=== PATIENT | female | born 1955 | race Caucasian/White ===

== ENCOUNTER → 2017-03-05 | Outpatient (CLI) | payer MEDICARE, OTHER ==
[~2017-03-05] MED LIST: ALBUPOW26 PO; CARI-277 PO; FEXO-8 PO; FLUT500M6 IN; GABA600T PO; IPR002IS NEB; LEVA3NEB NEB; MONT10TA23 PO; NOR10T PO; OMEP20TA44 PO; ORUDIS PO; SUMA100T2 PO; [UNRECOGNIZED DRUG - CODE] PO; colace PO; prednisone PO; travatan EACHEYE
== END | disposition home or self-care (01) ==
LOC: Rad HDHVI 10:41
PROVIDERS: ATTEND Internal Medicine Cardiovascular Disease
DX: R05 Cough (principal)
CPT/HCPCS: 71046

== ENCOUNTER → 2017-03-23 | Outpatient (CLI) | payer MEDICARE, OTHER ==
[~2017-03-23] MED LIST changes: +ACETYLCYSTEINE 20%(200MG/ML) SOL 4ML NEB ONE; +ACETYLCYSTEINE 20%(200MG/ML) SOL 4ML ONE; +IOHEXOL 350 MG/ML 100ML IJ ONE
[2017-03-23 10:40] VITALS: BP 122/86
[2017-03-23 11:30] VITALS: BP 126/93
== END | disposition home or self-care (01) ==
LOC: Rad HDHVI 10:29
PROVIDERS: ATTEND Internal Medicine Cardiovascular Disease
DX: M47.9 Spondylosis, unspecified (principal); R06.02 Shortness of breath
CPT/HCPCS: 71275; 82565; 94640; 96374; G0463; Q9967

== ENCOUNTER → 2017-10-09 | Outpatient (CLI) | payer MEDICARE, OTHER ==
[~2017-10-09] MED LIST changes: -ACETYLCYSTEINE 20%(200MG/ML) SOL 4ML NEB ONE; -ACETYLCYSTEINE 20%(200MG/ML) SOL 4ML ONE; -IOHEXOL 350 MG/ML 100ML IJ ONE
== END | disposition home or self-care (01) ==
LOC: Rad HDHVI 11:28
PROVIDERS: ATTEND Internal Medicine Cardiovascular Disease
DX: J40 Bronchitis, not specified as acute or chronic (principal)
CPT/HCPCS: 71046

== ENCOUNTER → 2017-10-14 | Outpatient (CLI) | payer MEDICARE, OTHER | END | disposition home or self-care (01) | LOC: Rad HDHVI 11:42 | PROVIDERS: ATTEND Internal Medicine Cardiovascular Disease | DX: M60.09 Infective myositis, multiple sites (principal); E78.5 Hyperlipidemia, unspecified | CPT/HCPCS: 93926 ==

== ENCOUNTER → 2018-01-05 | Outpatient (CLI) | payer MEDICARE, OTHER | END | disposition home or self-care (01) | LOC: LAB 08:09 | PROVIDERS: ATTEND Internal Medicine Cardiovascular Disease | DX: C84.45 Peripheral T-cell lymphoma, not elsewhere classified, lymph nodes of inguinal region and lower limb (principal); R70.0 Elevated erythrocyte sedimentation rate; M32.10 Systemic lupus erythematosus, organ or system involvement unspecified; R79.82 Elevated C-reactive protein (CRP); E78.5 Hyperlipidemia, unspecified | CPT/HCPCS: 36415; 85652; 86141; 86225; 86235 ==

== ENCOUNTER → 2018-06-02 | Outpatient (CLI) | payer MEDICARE, OTHER ==
[2018-06-02 12:22] LABS: Basophils # (auto) 0 uL; Basophils % (auto) 0.7 % (0.0-2.0); Eosinophils # (auto) 0.2 uL; Eosinophils % (auto) 4.1 % (0.0-7.0); Hematocrit 42.5 % (36.0-46.0); Lymphocytes # (auto) 0.8 uL; Mean Corpuscular Hemoglobin 30.6 pg (28.0-32.0); Mean Corpuscular Volume 92.7 fL (80.0-100.0); Monocytes # (auto) 0.4 uL; Monocytes % (auto) 6.5 % (0.0-12.0); Neutrophils # (auto) 4.1 uL; Neutrophils % (auto) 74.7 % (37.0-80.0); Nucleated Red Blood Cells % 0.2 %; Platelet Count (auto) 130 10^3/uL (140-450); Red Blood Cells 4.59 10^6/uL (4.0-5.20); Red Cell Distribution Width 13.2 % (11.8-14.3); White Blood Cell 5.5 10^3/uL (4.4-10.8)
[2018-06-02 12:26] LABS: Urine Blood Negative /uL (Negative); Urine Specific Gravity 1.007 (1.001-1.035)
[2018-06-02 12:45] LABS: Potassium 4.3 mmol/L (3.5-5.1)
[2018-06-02 12:55] LABS: Albumin 3.9 g/dL (3.4-5.0); BUN/Creatinine Ratio 14.3; Bilirubin, Total 0.6 mg/dL (0.2-1.0); Calcium 9.4 mg/dL (8.5-10.1); Total Protein 6.9 g/dL (6.4-8.2)
[2018-06-02 12:58] LABS: Free T4 (Free Thyroxine) 0.94 ng/dL (0.89-1.76)
== END | disposition home or self-care (01) ==
LOC: LAB 08:58
PROVIDERS: ATTEND Internal Medicine Cardiovascular Disease
DX: E55.9 Vitamin D deficiency, unspecified (principal); M06.9 Rheumatoid arthritis, unspecified; E03.9 Hypothyroidism, unspecified; E11.9 Type 2 diabetes mellitus without complications; D51.9 Vitamin B12 deficiency anemia, unspecified; N39.0 Urinary tract infection, site not specified; Z79.899 Other long term (current) drug therapy
CPT/HCPCS: 36415; 80053; 80061; 80158; 81003; 82306; 82607; 83036; 84439; 84443; 85025; 87086

== ENCOUNTER → 2018-07-07 | Outpatient (CLI) | payer MEDICARE, OTHER | END | disposition home or self-care (01) | LOC: Rad HDHVI 14:33 | PROVIDERS: ATTEND Internal Medicine Cardiovascular Disease | DX: R06.02 Shortness of breath (principal); R00.2 Palpitations; M85.88 Other specified disorders of bone density and structure, other site | CPT/HCPCS: 71046; 93306 ==

== ENCOUNTER → 2018-07-27 | Outpatient (CLI) | payer MEDICARE, OTHER ==
[~2018-07-27] VITALS: Ht 170.2 cm; Wt 68.0 kg
[~2018-07-27] MED LIST changes: +ADENOSINE 57 MG in GIVE UN-DILUTED 0 ML IV ONE; +ADENOSINE 90 MG/30 ML INJ IV ONE
[2018-07-27 12:04] LABS: Urine Blood Negative /uL (Negative); Urine Specific Gravity 1.006 (1.001-1.035)
[2018-07-27 12:09] LABS: Basophils # (auto) 0 uL; Basophils % (auto) 0.9 % (0.0-2.0); Eosinophils # (auto) 0.2 uL; Eosinophils % (auto) 4.3 % (0.0-7.0); Hematocrit 42.1 % (36.0-46.0); Hemoglobin 14.1 g/dL (12.2-16.2); Lymphocytes # (auto) 0.8 uL; Lymphocytes % (auto) 13.8 % (10.0-50.0); Mean Corpuscular Hemoglobin 31.1 pg (28.0-32.0); Mean Corpuscular Hgb Conc. 33.6 g/dL (32.0-36.0); Mean Corpuscular Volume 92.6 fL (80.0-100.0); Monocytes # (auto) 0.4 uL; Monocytes % (auto) 7.6 % (0.0-12.0); Neutrophils # (auto) 4.1 uL; Neutrophils % (auto) 73.4 % (37.0-80.0); Nucleated Red Blood Cells % 0.1 %; Platelet Count (auto) 131 10^3/uL (140-450); Red Blood Cells 4.54 10^6/uL (4.0-5.20); Red Cell Distribution Width 13.3 % (11.8-14.3); White Blood Cell 5.6 10^3/uL (4.4-10.8)
[2018-07-27 12:34] LABS: Potassium 3.8 mmol/L (3.5-5.1)
[2018-07-27 12:46] LABS: Albumin 3.6 g/dL (3.4-5.0); BUN/Creatinine Ratio 16.7; Bilirubin, Total 0.5 mg/dL (0.2-1.0); Calcium 9.3 mg/dL (8.5-10.1); Total Protein 6.9 g/dL (6.4-8.2)
[2018-07-27 13:09] LABS: Free T4 (Free Thyroxine) 0.84 ng/dL (0.89-1.76)
== END | disposition home or self-care (01) ==
LOC: Rad HDHVI 08:03
PROVIDERS: ATTEND Internal Medicine Cardiovascular Disease
DX: Z13.89 Encounter for screening for other disorder (principal); E03.9 Hypothyroidism, unspecified; E55.9 Vitamin D deficiency, unspecified; D51.9 Vitamin B12 deficiency anemia, unspecified; N39.0 Urinary tract infection, site not specified; J44.9 Chronic obstructive pulmonary disease, unspecified; E78.5 Hyperlipidemia, unspecified; I47.9 Paroxysmal tachycardia, unspecified; R42 Dizziness and giddiness; I11.0 Hypertensive heart disease with heart failure; I50.9 Heart failure, unspecified; Z79.899 Other long term (current) drug therapy
CPT/HCPCS: 36415; 78452; 80053; 80061; 81003; 82306; 82607; 83036; 84439; 84443; 85025; 93005; 96374; 96375; A9500; J0153

== ENCOUNTER → 2019-05-26 | Outpatient (CLI) | payer MEDICARE, OTHER ==
[~2019-05-26] MED LIST changes: -ADENOSINE 57 MG in GIVE UN-DILUTED 0 ML IV ONE; -ADENOSINE 90 MG/30 ML INJ IV ONE; +MEROPENEM 1GM IVPB 100 ML IV SCH
[2019-05-26 13:52] VITALS: BP 145/93
--- NOTE | 2019-05-26 13:52 | NUR ---
[facility] PT ARRIVED AT [facility] FOR ORDERED ABX THERAPY. VSS A/O X 4 0 DISTRESS
--- NOTE | 2019-05-26 14:44 | NUR ---
IV insertion IV access obtained, via clean sterile technique by inserting 22 gauge catheter at RA after attempt(s). IV secured properly. No trauma to site. Patient tolerated procedure well.
[2019-05-26 15:30] VITALS: BP 160/80
--- NOTE | 2019-05-26 15:30 | NUR ---
Discharge Instructions See e-MAR for any mediations given with this visit. Patient education given on disease process. Patient verbalized understanding. Previous labs reviewed. Patient discharged in stable condition with after care instructions and follow up appointment. MEDICATIONS MEROPENEM IV [id number] PT TO RETURN TO CLINIC IN AM FOR FASTING LABS AND IV ABX. IV TO RAC SECURED IN PLACE . [employer] PICKED UP ORDERS FOR HOME HEALTH TO INFUSE ABX OVER THE WEEKEND
== END | disposition home or self-care (01) ==
LOC: CHF HDHVI 13:48
PROVIDERS: ATTEND Internal Medicine Cardiovascular Disease
DX: J06.9 Acute upper respiratory infection, unspecified (principal); E03.9 Hypothyroidism, unspecified; Z79.899 Other long term (current) drug therapy
CPT/HCPCS: 96365; G0463; J1642; J2185

== ENCOUNTER → 2019-05-27 | Outpatient (CLI) | payer MEDICARE, OTHER ==
[~2019-05-27] MED LIST changes: +MEROPENEM 1GM IVPB 100 ML IV ONE; -MEROPENEM 1GM IVPB 100 ML IV SCH; +MEROPENEM 1GM IVPB 50 ML IV ONE
[2019-05-27 08:10] VITALS: BP 128/91
[2019-05-27 10:35] VITALS: BP 140/87
[2019-05-27 11:46] LABS: Urine Blood Negative /uL (Negative); Urine Specific Gravity 1.013 (1.001-1.035)
[2019-05-27 11:48] LABS: Basophils # (auto) 0.1 10 ^3/uL (0-0.2); Basophils % (auto) 1.1 % (0.0-2.0); Eosinophils # (auto) 0.2 10 ^3/uL (0-0.8); Eosinophils % (auto) 5.3 % (0.0-7.0); Hematocrit 41.3 % (36.0-46.0); Hemoglobin 13.7 g/dL (12.2-16.2); Lymphocytes # (auto) 0.8 10 ^3/uL (0.4-5.4); Lymphocytes % (auto) 17.6 % (10.0-50.0); Mean Corpuscular Hemoglobin 30.5 pg (28.0-32.0); Mean Corpuscular Volume 92.4 fL (80.0-100.0); Monocytes # (auto) 0.4 10 ^3/uL (0-1.3); Monocytes % (auto) 8.5 % (0.0-12.0); Neutrophils % (auto) 67.5 % (37.0-80.0); Platelet Count (auto) 124 10^3/uL (140-450); Red Blood Cells 4.47 10^6/uL (4.0-5.20); Red Cell Distribution Width 13.4 % (11.8-14.3); White Blood Cell 4.5 10^3/uL (4.4-10.8)
[2019-05-27 11:56] LABS: Albumin 3.4 g/dL (3.4-5.0); Calcium 8.6 mg/dL (8.5-10.1); Magnesium 2.5 mg/dL (1.6-2.6); Potassium 3.8 mmol/L (3.5-5.1)
[2019-05-27 12:01] LABS: BUN/Creatinine Ratio 14.5; Bilirubin, Direct 0.1 mg/dL (0-0.2); Bilirubin, Total 0.4 mg/dL (0.2-1.0); Total Protein 6.6 g/dL (6.4-8.2)
== END | disposition home or self-care (01) ==
LOC: CHF HDHVI 08:02
PROVIDERS: ATTEND Internal Medicine Cardiovascular Disease
DX: E03.9 Hypothyroidism, unspecified (principal); K90.9 Intestinal malabsorption, unspecified; N39.0 Urinary tract infection, site not specified; D51.9 Vitamin B12 deficiency anemia, unspecified; Z79.899 Other long term (current) drug therapy; Z00.00 Encounter for general adult medical examination without abnormal findings
CPT/HCPCS: 36415; 80048; 80061; 80076; 81003; 82306; 83036; 83735; 84443; 85025; 96365; G0463; J2185

== ENCOUNTER → 2019-05-30 | Outpatient (CLI) | payer MEDICARE, OTHER ==
[~2019-05-30] VITALS: Ht 2.5 cm; Wt 0.0 kg
[2019-05-30 08:00] VITALS: BP 127/94
--- NOTE | 2019-05-30 08:00 | NUR ---
CHF PT ARRIVED TO THE [facility]F CLINIC FOR TX AND SCHEDULED ANTIBIOTIC THERAPY
--- NOTE | 2019-05-30 08:10 | NUR ---
IV PRESENT UPON ARRIVAL. SITE PATENT AND BENIGN WILL REMOVE IV TODAY.
--- NOTE | 2019-05-30 08:36 | NUR ---
MEROPENEM STARTED PER MD ORDERS
[2019-05-30 10:40] VITALS: BP 152/83
--- NOTE | 2019-05-30 10:40 | NUR ---
Discharge Instructions See e-MAR for any mediations given with this visit. Patient education given on disease process. Patient verbalized understanding. Previous labs reviewed. Patient discharged in stable condition with after care instructions and follow up appointment. WILL RETURN TOMORROW FOR NEXT IV ANTIBIOTIC INFUSION PER MD ORDERS NOTE MEROPENEM IV [id number] ADMIN BY KARL
== END | disposition home or self-care (01) ==
LOC: CHF HDHVI 07:56
PROVIDERS: ATTEND Internal Medicine Cardiovascular Disease
DX: J40 Bronchitis, not specified as acute or chronic (principal); E03.9 Hypothyroidism, unspecified; Z79.899 Other long term (current) drug therapy
CPT/HCPCS: 96365; 96366; G0463; J2185

== ENCOUNTER → 2019-05-31 | Outpatient (CLI) | payer MEDICARE, OTHER ==
--- NOTE | 2019-05-31 08:00 | NUR ---
CHF PT ARRIVED TO THE CLINIC FOR ANTIBIOTIC THERAPY 0 DISTRESS VSS.
--- NOTE | 2019-05-31 08:15 | NUR ---
IV insertion IV access obtained, via clean sterile technique by inserting 22 gauge catheter at RFA after 1 attempt(s). IV secured properly. No trauma to site. Patient tolerated procedure well. ADDITIONAL LABS SENT
--- NOTE | 2019-05-31 08:20 | NUR ---
ANTIBIOTICS STARTED PER MD ORDER
[2019-05-31 08:46] VITALS: BP 124/83
[2019-05-31 09:59] VITALS: BP 120/85
--- NOTE | 2019-05-31 09:59 | NUR ---
Discharge Instructions See e-MAR for any mediations given with this visit. Patient education given on disease process. Patient verbalized understanding. Previous labs reviewed. Patient discharged in stable condition with after care instructions and follow up appointment. medications meropenem iv heparin ivp IV LEFT INTACT AND SECURED WITH KEFLEX AND NETTING. PT TO RETURN TO CLINIC TOMORROW FOR LAST ABX
[2019-05-31 12:21] LABS: Free T4 (Free Thyroxine) 0.79 ng/dL (0.89-1.76); T3 Total 1.09 ng/mL (0.60-1.81)
== END | disposition home or self-care (01) ==
LOC: CHF HDHVI 08:08
PROVIDERS: ATTEND Internal Medicine Cardiovascular Disease
DX: E03.9 Hypothyroidism, unspecified (principal)
CPT/HCPCS: 84439; 84480; J1642; J2185

== ENCOUNTER → 2019-06-01 | Outpatient (CLI) | payer MEDICARE, OTHER ==
[~2019-06-01] MED LIST changes: -MEROPENEM 1GM IVPB 50 ML IV ONE
[2019-06-01 07:45] VITALS: BP 119/84
--- NOTE | 2019-06-01 07:45 | NUR ---
CHF PT ARRIVED TO THE CHF CLINIC FOR IV ANTIBIOTIC INFUSION PER MD ORDER. TREATMENT 7 OF 7. IV IN [address] BENIGN AND FLUSHES WELL. VSS. WILL CONTINUE TO MONITOR.
--- NOTE | 2019-06-01 09:19 | NUR ---
IV removal IV DC'd with sterile technique, catheter fully intact. Pressure dressing applied to site. Patient tolerated procedure well. Discharged with aftercare instructions per MD. NOTE: REMOVED BY MAO NGUYỄN
[2019-06-01 09:22] VITALS: BP 140/87
--- NOTE | 2019-06-01 09:22 | NUR ---
Discharge Instructions See e-MAR for any mediations given with this visit. Patient education given on disease process. Patient verbalized understanding. Previous labs reviewed. Patient discharged in stable condition with after care instructions and follow up appointment. NOTE MEROPENEM [id number] ADMIN BY MAO NGUYỄN
== END | disposition home or self-care (01) ==
LOC: CHF HDHVI 08:31
PROVIDERS: ATTEND Internal Medicine Cardiovascular Disease
DX: J40 Bronchitis, not specified as acute or chronic (principal); E03.9 Hypothyroidism, unspecified; Z79.899 Other long term (current) drug therapy
CPT/HCPCS: 96365; G0463; J2185

== ENCOUNTER → 2020-02-21 | Outpatient (CLI) | payer MEDICARE, OTHER ==
[~2020-02-21] MED LIST changes: -MEROPENEM 1GM IVPB 100 ML IV ONE
== END | disposition home or self-care (01) ==
LOC: Rad HDHVI 09:53
PROVIDERS: ATTEND Internal Medicine Cardiovascular Disease
DX: S02.40FA Zygomatic fracture, left side, initial encounter for closed fracture (principal); G93.89 Other specified disorders of brain; J43.9 Emphysema, unspecified; J34.2 Deviated nasal septum; R51.9 Headache, unspecified; X58.XXXA Exposure to other specified factors, initial encounter; Y93.89 Activity, other specified; Y92.89 Other specified places as the place of occurrence of the external cause; Y99.8 Other external cause status; Z91.81 History of falling
CPT/HCPCS: 70450; 70486; 73030; 73110

== ENCOUNTER → 2020-05-23 | Outpatient (CLI) | payer MEDICARE, OTHER ==
[~2020-05-23] VITALS: Ht 170.2 cm; Wt 74.8 kg
[~2020-05-23] MED LIST changes: +ADENOSINE 63 MG in GIVE UN-DILUTED 0 ML IV ONE; +ADENOSINE 90 MG/30 ML INJ IV ONE
== END | disposition home or self-care (01) ==
LOC: Rad HDHVI 08:49
PROVIDERS: ATTEND Internal Medicine Cardiovascular Disease
DX: I10 Essential (primary) hypertension (principal); E78.00 Pure hypercholesterolemia, unspecified; R07.89 Other chest pain; Z82.49 Family history of ischemic heart disease and other diseases of the circulatory system
CPT/HCPCS: 78452; 93005; 96374; 96375; A9500; J0153

== ENCOUNTER → 2020-08-31 | Outpatient (CLI) | payer MEDICARE, OTHER ==
[~2020-08-31] MED LIST changes: -ADENOSINE 63 MG in GIVE UN-DILUTED 0 ML IV ONE; -ADENOSINE 90 MG/30 ML INJ IV ONE
== END | disposition home or self-care (01) ==
LOC: Rad HDHVI 09:53
PROVIDERS: ATTEND Internal Medicine Cardiovascular Disease
DX: I10 Essential (primary) hypertension (principal); E78.5 Hyperlipidemia, unspecified
CPT/HCPCS: 93925

== ENCOUNTER → 2021-02-11 | Outpatient (CLI) | payer MEDICARE, OTHER | END | disposition home or self-care (01) | LOC: Rad HDHVI 10:51 | PROVIDERS: ATTEND Internal Medicine Cardiovascular Disease | DX: R06.02 Shortness of breath (principal) | CPT/HCPCS: 71046 ==

== ENCOUNTER → 2021-03-04 | Outpatient (CLI) | payer MEDICARE, OTHER ==
[~2021-03-04] MED LIST changes: +PIPERACILLIN-TAZO 4.5GM 100 ML IV ONE
[2021-03-04 12:52] VITALS: BP 171/94
[2021-03-04 14:40] VITALS: BP 136/79
[2021-03-04 15:53] VITALS: BP 140/82
== END | disposition home or self-care (01) ==
LOC: Rad HDHVI 12:51
PROVIDERS: ATTEND Internal Medicine Cardiovascular Disease
DX: J40 Bronchitis, not specified as acute or chronic (principal); I70.0 Atherosclerosis of aorta; I10 Essential (primary) hypertension; E78.5 Hyperlipidemia, unspecified; E78.00 Pure hypercholesterolemia, unspecified
CPT/HCPCS: 71046; 96365; 96366; G0463; J1642; J2543; 96375

== ENCOUNTER → 2021-03-05 | Outpatient (CLI) | payer MEDICARE, OTHER ==
[~2021-03-05] MED LIST changes: -PIPERACILLIN-TAZO 4.5GM 100 ML IV ONE; +cefTRIAXone 1GM/50ML D5W 50 ML IV ONE; +cefTRIAXone SOD 1,000 MG VL ONE
[2021-03-05 07:58] VITALS: BP 140/90
[2021-03-05 08:43] VITALS: BP 150/89
== END | disposition home or self-care (01) ==
LOC: CHF HDHVI 07:57
PROVIDERS: ATTEND Internal Medicine Cardiovascular Disease
DX: J40 Bronchitis, not specified as acute or chronic (principal); I10 Essential (primary) hypertension; E78.5 Hyperlipidemia, unspecified; E78.00 Pure hypercholesterolemia, unspecified
CPT/HCPCS: 96365; G0463; J0696; J1642

== ENCOUNTER → 2021-03-06 | Outpatient (CLI) | payer MEDICARE, OTHER ==
[~2021-03-06] VITALS: Ht 30.5 cm; Wt 0.5 kg
[~2021-03-06] MED LIST changes: -cefTRIAXone SOD 1,000 MG VL ONE
[2021-03-06 13:58] VITALS: BP 125/82
[2021-03-06 14:37] VITALS: BP 112/82
== END | disposition home or self-care (01) ==
LOC: CHF HDHVI 14:16
PROVIDERS: ATTEND Internal Medicine Cardiovascular Disease
DX: J40 Bronchitis, not specified as acute or chronic (principal); I70.0 Atherosclerosis of aorta; I10 Essential (primary) hypertension; E78.5 Hyperlipidemia, unspecified; E78.00 Pure hypercholesterolemia, unspecified
CPT/HCPCS: 96365; G0463; J0696

== ENCOUNTER → 2021-03-07 | Outpatient (CLI) | payer MEDICARE, OTHER ==
[~2021-03-07] MED LIST changes: +cefTRIAXone SOD 1,000 MG VL ONE
[2021-03-07 07:59] VITALS: BP 148/92
[2021-03-07 08:27] VITALS: BP 165/98
== END | disposition home or self-care (01) ==
LOC: CHF HDHVI 07:52
PROVIDERS: ATTEND Internal Medicine Cardiovascular Disease
DX: R06.02 Shortness of breath (principal); J40 Bronchitis, not specified as acute or chronic; I10 Essential (primary) hypertension; E78.5 Hyperlipidemia, unspecified; E78.00 Pure hypercholesterolemia, unspecified
CPT/HCPCS: 96374; G0463; J0696

== ENCOUNTER → 2022-04-01 | Outpatient (CLI) | payer MEDICARE, OTHER ==
[~2022-04-01] MED LIST changes: -cefTRIAXone 1GM/50ML D5W 50 ML IV ONE; -cefTRIAXone SOD 1,000 MG VL ONE
[2022-04-01 16:22] LABS: Urine Blood Negative /uL (Negative); Urine Specific Gravity 1.008 (1.001-1.035)
[2022-04-01 16:25] LABS: Basophils # (auto) 0 10 ^3/uL (0-0.2); Basophils % (auto) 0.7 % (0.0-2.0); Eosinophils # (auto) 0 10 ^3/uL (0-0.8); Eosinophils % (auto) 0.6 % (0.0-7.0); Hematocrit 41.6 % (36.0-46.0); Lymphocytes # (auto) 0.9 10 ^3/uL (0.4-5.4); Lymphocytes % (auto) 12.7 % (10.0-50.0); Mean Corpuscular Hemoglobin 30.2 pg (28.0-32.0); Mean Corpuscular Hgb Conc. 33.7 g/dL (32.0-36.0); Mean Corpuscular Volume 89.6 fL (80.0-100.0); Monocytes # (auto) 0.4 10 ^3/uL (0-1.3); Monocytes % (auto) 5.8 % (0.0-12.0); Neutrophils # (auto) 5.9 10 ^3/uL (1.6-8.6); Neutrophils % (auto) 80.2 % (37.0-80.0); Red Blood Cells 4.65 10^6/uL (4.0-5.20); Red Cell Distribution Width 12.7 % (11.8-14.3); White Blood Cell 7.4 10^3/uL (4.4-10.8)
[2022-04-01 16:32] LABS: BUN/Creatinine Ratio 12.7; Calcium 9.6 mg/dL (8.5-10.1); Potassium 3.8 mmol/L (3.5-5.1)
== END | disposition home or self-care (01) ==
LOC: Rad HDHVI 11:40
PROVIDERS: ATTEND Internal Medicine Cardiovascular Disease
DX: N39.0 Urinary tract infection, site not specified (principal)
CPT/HCPCS: 36415; 80048; 81003; 85025

== ENCOUNTER → 2022-07-11 | Outpatient (CLI) | payer MEDICARE, BC ==
[~2022-07-11] MED LIST changes: +ALCA0.25 EACHEYE; +APRE30TA PO; +ASPI-543 PO; +CHOL20007 PO; +DOCU-94 PO; +FLE50T PO; +FORM20NE3 IN; +HYDR-4072; +LEVA1NEB5 NEB; +LORA-622 PO; +MAGN400T40 PO; +MELO-61 PO; +MONT5CHW23 PO; +OME20GT PO; +ROFL1TAB2 PO; +SODIUM CHLORIDE 0.9% 500 ML IV ONE; +SUMA50TA2 PO; +TRAV0.00 EACHEYE; +cefTRIAXone 1GM/50ML D5W 50 ML IV ONE
[2022-07-11 11:39] VITALS: BP 118/78
[2022-07-11 14:31] VITALS: BP 150/83
== END | disposition home or self-care (01) ==
LOC: Rad HDHVI 11:40
PROVIDERS: ATTEND Internal Medicine Cardiovascular Disease
DX: J06.9 Acute upper respiratory infection, unspecified (principal)
CPT/HCPCS: 71046; 96365; G0463; J0696; J7040; 96361

== ENCOUNTER 2022-07-22 11:23 | Inpatient (IN) | payer MEDICARE, BC ==
[~2022-07-22] VITALS: Ht 170.2 cm; Wt 110.0 kg
[~2022-07-22 11:23] MED LIST changes: -ALCA0.25 EACHEYE; -APRE30TA PO; -ASPI-543 PO; -CHOL20007 PO; -DOCU-94 PO; -FLE50T PO; -FORM20NE3 IN; -HYDR-4072; -LEVA1NEB5 NEB; -LORA-622 PO; -MAGN400T40 PO; -MELO-61 PO; -MONT5CHW23 PO; -OME20GT PO; -ROFL1TAB2 PO; -SODIUM CHLORIDE 0.9% 500 ML IV ONE; -SUMA50TA2 PO; -TRAV0.00 EACHEYE; -cefTRIAXone 1GM/50ML D5W 50 ML IV ONE
[2022-07-22] MEDS: GABAPENTIN 100 MG CAP PO SCH (22:30)
[2022-07-22] MEDS ORDERED: methylPREDNISolone SOD SUCC 40 MG/ML VL IV SCH (22:30)
[2022-07-23] VITALS (8 sets, daily range): BP systolic 109–141; BP diastolic 61–87
[2022-07-23] MEDS: MONTELUKAST SODIUM 10 MG TAB PO SCH ×2 (00:30→22:19)
[2022-07-23 00:43] LABS: Basophils # (auto) 0 10 ^3/uL (0-0.2); Basophils % (auto) 0.5 % (0.0-2.0); Eosinophils # (auto) 0.1 10 ^3/uL (0-0.8); Eosinophils % (auto) 1.3 % (0.0-7.0); Hematocrit 37.2 % (36.0-46.0); Hemoglobin 12.9 g/dL (12.2-16.2); Lymphocytes # (auto) 1.2 10 ^3/uL (0.4-5.4); Lymphocytes % (auto) 19.6 % (10.0-50.0); Mean Corpuscular Hemoglobin 32.2 pg (28.0-32.0); Mean Corpuscular Hgb Conc. 34.6 g/dL (32.0-36.0); Monocytes # (auto) 0.7 10 ^3/uL (0-1.3); Monocytes % (auto) 11.1 % (0.0-12.0); Neutrophils # (auto) 4.2 10 ^3/uL (1.6-8.6); Neutrophils % (auto) 67.5 % (37.0-80.0); Red Cell Distribution Width 13.3 % (11.8-14.3); White Blood Cell 6.2 10^3/uL (4.4-10.8)
[2022-07-23 00:44] LABS: BUN/Creatinine Ratio 14.8 (10.0-20.0); Calcium 8.5 mg/dL (8.5-10.1); Potassium 3.5 mmol/L (3.5-5.1)
[2022-07-23] MEDS: AZITHROMYCIN 500MG/ 250ML 250 ML IV SCH ×2 (01:01→11:03)
[2022-07-23] MEDS ORDERED: FLE50T PO (01:08)
[2022-07-23] MEDS ORDERED: MONT5CHW12 PO (01:25)
[2022-07-23] MEDS ORDERED: OME20GT PO (01:25)
[2022-07-23] MEDS ORDERED: CHOL20007 PO (01:25)
[2022-07-23] MEDS ORDERED: FORM20NE3 IN (01:25)
[2022-07-23] MEDS ORDERED: MELO-61 PO (01:25)
[2022-07-23] MEDS ORDERED: HYDR-4072 (01:25)
[2022-07-23] MEDS ORDERED: [UNRECOGNIZED DRUG - CODE] EACHEYE (01:25)
[2022-07-23] MEDS ORDERED: TRAV0.00 EACHEYE (01:25)
[2022-07-23] MEDS ORDERED: APRE30TA PO (01:25)
[2022-07-23] MEDS ORDERED: SUMA50TA2 PO (01:25)
[2022-07-23] MEDS ORDERED: MAGN400T40 PO (01:25)
[2022-07-23] MEDS ORDERED: GABA600T PO (01:25)
[2022-07-23] MEDS ORDERED: DOCU-94 PO (01:25)
[2022-07-23] MEDS ORDERED: LEVA1NEB5 NEB (01:25)
[2022-07-23] MEDS ORDERED: ASPI-543 PO (01:25)
[2022-07-23] MEDS ORDERED: LORA-622 PO (01:25)
[2022-07-23] MEDS ORDERED: ROFL1TAB2 PO (01:25)
[2022-07-23] MEDS: ALBUTEROL SULF 2.5 MG/0.5ML(0.5%) NEB SOLN NEB SCH ×5 (06:19→23:36)
[2022-07-23] MEDS: IPRATROPIUM BROM 0.5 MG/2.5ML INH SOL NEB SCH ×5 (06:20→23:36)
[2022-07-23] MEDS: methylPREDNISolone SOD SUCC 40 MG/ML VL IV SCH ×2 (09:00→17:00)
[2022-07-23] MEDS ORDERED: PATIENTS OWN MEDICATION IN SCH (10:00)
[2022-07-23] MEDS: OTEZLA 30 MG PO SCH ×2 (10:00→22:21)
[2022-07-23] MEDS ORDERED: LEVOTHYROXINE SODIUM 112 MCG TAB PO SCH (10:00)
[2022-07-23] MEDS: DOCUSATE SOD 100 MG CAP PO SCH (11:00)
[2022-07-23] MEDS: TRIAMTERENE/HCTZ 37.5/25 MG CAP/TAB PO SCH (11:00)
[2022-07-23] MEDS: BUDESONIDE (INHALATION) 0.5 MG/2 ML NEB NEB SCH ×2 (11:45→18:14)
[2022-07-23] MEDS: FLECAINIDE ACETATE 50 MG TAB PO SCH ×2 (12:05→22:24)
[2022-07-23] MEDS ORDERED: IOHEXOL 300 MG/ML 100ML BOTTLE IJ ONE (15:12)
[2022-07-23] MEDS ORDERED: SUMAtriptan SUCCINATE 25 MG TAB PO PRN (21:15)
[2022-07-23] MEDS ORDERED: SUMAtriptan SUCCINATE 25 MG TAB PO SCH ×2 (22:00)
[2022-07-23] MEDS: TRAVATAN EYE DROP LEFTEYE SCH (22:17)
[2022-07-23] MEDS: GABAPENTIN 100 MG CAP PO SCH (22:18)
[2022-07-24] MEDS: methylPREDNISolone SOD SUCC 40 MG/ML VL IV SCH ×2 (00:38→09:00)
[2022-07-24 05:00] VITALS: BP 132/81
[2022-07-24] MEDS: ALBUTEROL SULF 2.5 MG/0.5ML(0.5%) NEB SOLN NEB SCH ×3 (05:48→18:13)
[2022-07-24] MEDS: IPRATROPIUM BROM 0.5 MG/2.5ML INH SOL NEB SCH ×3 (05:48→18:14)
[2022-07-24] MEDS: BUDESONIDE (INHALATION) 0.5 MG/2 ML NEB NEB SCH ×2 (05:48→18:14)
[2022-07-24 08:51] VITALS: BP 123/87
[2022-07-24] MEDS: AZITHROMYCIN 500MG/ 250ML 250 ML IV SCH (10:15)
[2022-07-24] MEDS: DOCUSATE SOD 100 MG CAP PO SCH (10:28)
[2022-07-24] MEDS: LEVOTHYROXINE SODIUM 100 MCG TAB PO SCH (10:30)
[2022-07-24] MEDS: TRIAMTERENE/HCTZ 37.5/25 MG CAP/TAB PO SCH (10:32)
[2022-07-24] MEDS: FLECAINIDE ACETATE 50 MG TAB PO SCH ×2 (10:32→22:31)
[2022-07-24] MEDS: OTEZLA 30 MG PO SCH ×2 (10:34→22:34)
[2022-07-24 13:00] VITALS: BP_SYST 110; BP_SYST 123; BP_DIAS 60; BP_DIAS 79
[2022-07-24 13:28] LABS: Hepatitis C Antibody Negative (Negative)
[2022-07-24] MEDS ORDERED: DexAMETHasone SOD PHOS 4 MG/1ML SDV INJ IV ONE (15:30)
[2022-07-24] MEDS ORDERED: FLUCONAZOLE 100 MG TAB PO ONE (15:30)
[2022-07-24 16:50] VITALS: BP 133/81
[2022-07-24 22:00] VITALS: BP 129/79
[2022-07-24] MEDS: TRAVATAN EYE DROP LEFTEYE SCH (22:29)
[2022-07-24] MEDS: GABAPENTIN 100 MG CAP PO SCH (22:31)
[2022-07-24] MEDS: MONTELUKAST SODIUM 10 MG TAB PO SCH (22:32)
[2022-07-25] MEDS: IPRATROPIUM BROM 0.5 MG/2.5ML INH SOL NEB SCH ×5 (00:04→23:53)
[2022-07-25] MEDS: ALBUTEROL SULF 2.5 MG/0.5ML(0.5%) NEB SOLN NEB SCH ×5 (00:04→23:53)
[2022-07-25 05:00] VITALS: BP_SYST 131; BP_SYST 135; BP_DIAS 53; BP_DIAS 85
[2022-07-25] MEDS: LEVOTHYROXINE SODIUM 100 MCG TAB PO SCH (06:24)
[2022-07-25 08:53] VITALS: BP 117/76
[2022-07-25] MEDS ORDERED: DexAMETHasone SOD PHOS 4 MG/1ML SDV INJ IV SCH (10:00)
[2022-07-25] MEDS: BUDESONIDE (INHALATION) 0.5 MG/2 ML NEB NEB SCH ×2 (11:02→18:46)
[2022-07-25] MEDS: AZITHROMYCIN 500MG/ 250ML 250 ML IV SCH (12:20)
[2022-07-25] MEDS: DexAMETHasone SOD PHOS 10MG/1ML VIAL INJ IV SCH (12:21)
[2022-07-25] MEDS: FLUCONAZOLE 100 MG TAB PO SCH (12:22)
[2022-07-25] MEDS: TRIAMTERENE/HCTZ 37.5/25 MG CAP/TAB PO SCH (12:26)
[2022-07-25] MEDS: DOCUSATE SOD 100 MG CAP PO SCH (12:27)
[2022-07-25] MEDS: FLECAINIDE ACETATE 50 MG TAB PO SCH ×2 (12:28→22:26)
[2022-07-25] MEDS: OTEZLA 30 MG PO SCH ×2 (12:29→22:00)
[2022-07-25 12:51] VITALS: BP 120/76
[2022-07-25 17:12] VITALS: BP 131/82
[2022-07-25] MEDS: guaiFENesin-CODEINE Liq 5 ML UD PO PRN ×2 (18:26→22:25)
[2022-07-25 22:00] VITALS: BP 126/78
[2022-07-25] MEDS: GABAPENTIN 100 MG CAP PO SCH (22:26)
[2022-07-25] MEDS: MONTELUKAST SODIUM 10 MG TAB PO SCH (22:26)
[2022-07-25] MEDS: FLUTICASONE PROP NASAL SPR 0.05 % (50MCG) 16GM EACHNOSTRI SCH (22:28)
[2022-07-25] MEDS: TRAVATAN EYE DROP LEFTEYE SCH (22:30)
[2022-07-25] MEDS: TEMAZEPAM 15 MG CAP PO PRN (23:14)
[2022-07-26 05:00] VITALS: BP 133/77
[2022-07-26] MEDS: LEVOTHYROXINE SODIUM 100 MCG TAB PO SCH (06:05)
[2022-07-26] MEDS: IPRATROPIUM BROM 0.5 MG/2.5ML INH SOL NEB SCH ×3 (06:33→18:06)
[2022-07-26] MEDS: ALBUTEROL SULF 2.5 MG/0.5ML(0.5%) NEB SOLN NEB SCH ×3 (06:34→18:06)
[2022-07-26 08:15] VITALS: BP 141/79
[2022-07-26 09:17] VITALS: BP 141/79
[2022-07-26] MEDS: AZITHROMYCIN 500MG/ 250ML 250 ML IV SCH (09:52)
[2022-07-26] MEDS: DexAMETHasone SOD PHOS 10MG/1ML VIAL INJ IV SCH (09:53)
[2022-07-26] MEDS: FLUTICASONE PROP NASAL SPR 0.05 % (50MCG) 16GM EACHNOSTRI SCH ×2 (09:54→21:53)
[2022-07-26] MEDS: guaiFENesin-CODEINE Liq 5 ML UD PO PRN ×2 (09:56→21:53)
[2022-07-26] MEDS: DOCUSATE SOD 100 MG CAP PO SCH (09:56)
[2022-07-26] MEDS: TRIAMTERENE/HCTZ 37.5/25 MG CAP/TAB PO SCH (09:57)
[2022-07-26] MEDS: FLECAINIDE ACETATE 50 MG TAB PO SCH ×2 (09:58→21:54)
[2022-07-26] MEDS: FLUCONAZOLE 100 MG TAB PO SCH (09:58)
[2022-07-26] MEDS: OTEZLA 30 MG PO SCH ×2 (10:00→21:56)
[2022-07-26 12:15] VITALS: BP 135/89
[2022-07-26] MEDS: BUDESONIDE (INHALATION) 0.5 MG/2 ML NEB NEB SCH ×2 (13:01→18:06)
[2022-07-26 16:10] VITALS: BP 126/84
[2022-07-26] MEDS: GABAPENTIN 100 MG CAP PO SCH (21:54)
[2022-07-26] MEDS: MONTELUKAST SODIUM 10 MG TAB PO SCH (21:55)
[2022-07-26] MEDS: TRAVATAN EYE DROP LEFTEYE SCH (21:56)
[2022-07-26 22:00] VITALS: BP 131/80
[2022-07-26] MEDS: TEMAZEPAM 15 MG CAP PO PRN (22:00)
[2022-07-27] MEDS: IPRATROPIUM BROM 0.5 MG/2.5ML INH SOL NEB SCH ×4 (00:05→18:42)
[2022-07-27] MEDS: ALBUTEROL SULF 2.5 MG/0.5ML(0.5%) NEB SOLN NEB SCH ×4 (00:05→18:41)
[2022-07-27 05:00] VITALS: BP 124/67
[2022-07-27] MEDS: LEVOTHYROXINE SODIUM 100 MCG TAB PO SCH (06:10)
[2022-07-27] MEDS: BUDESONIDE (INHALATION) 0.5 MG/2 ML NEB NEB SCH ×2 (06:11→18:42)
[2022-07-27 08:05] VITALS: BP 132/88
[2022-07-27] MEDS: OTEZLA 30 MG PO SCH ×2 (09:07→22:00)
[2022-07-27] MEDS: FLUTICASONE PROP NASAL SPR 0.05 % (50MCG) 16GM EACHNOSTRI SCH ×2 (09:30→23:01)
[2022-07-27] MEDS: AZITHROMYCIN 500MG/ 250ML 250 ML IV SCH (09:31)
[2022-07-27] MEDS: DexAMETHasone SOD PHOS 10MG/1ML VIAL INJ IV SCH (09:31)
[2022-07-27] MEDS: DOCUSATE SOD 100 MG CAP PO SCH (09:33)
[2022-07-27] MEDS: FLUCONAZOLE 100 MG TAB PO SCH (09:34)
[2022-07-27] MEDS: guaiFENesin-CODEINE Liq 5 ML UD PO PRN ×3 (09:36→23:08)
[2022-07-27] MEDS: FLECAINIDE ACETATE 50 MG TAB PO SCH ×2 (09:36→22:00)
[2022-07-27] MEDS: TRIAMTERENE/HCTZ 37.5/25 MG CAP/TAB PO SCH (09:38)
[2022-07-27 12:05] VITALS: BP 141/93
[2022-07-27 16:10] VITALS: BP 144/82
[2022-07-27 20:00] VITALS: BP 128/86
[2022-07-27 22:00] VITALS: BP_SYST 111; BP_SYST 128; BP_DIAS 51; BP_DIAS 86
[2022-07-27] MEDS: TRAVATAN EYE DROP LEFTEYE SCH (23:02)
[2022-07-27] MEDS: MONTELUKAST SODIUM 10 MG TAB PO SCH (23:03)
[2022-07-27] MEDS: GABAPENTIN 100 MG CAP PO SCH (23:04)
[2022-07-28] MEDS: ALBUTEROL SULF 2.5 MG/0.5ML(0.5%) NEB SOLN NEB SCH ×5 (00:05→18:52)
[2022-07-28] MEDS: IPRATROPIUM BROM 0.5 MG/2.5ML INH SOL NEB SCH ×5 (00:05→18:52)
[2022-07-28 05:00] VITALS: BP 134/79
[2022-07-28] MEDS: LEVOTHYROXINE SODIUM 100 MCG TAB PO SCH (06:49)
[2022-07-28] MEDS: BUDESONIDE (INHALATION) 0.5 MG/2 ML NEB NEB SCH ×2 (07:00→18:52)
[2022-07-28] MEDS: OTEZLA 30 MG PO SCH ×2 (07:38→22:00)
[2022-07-28 09:00] VITALS: BP 137/78
[2022-07-28] MEDS: AZITHROMYCIN 500MG/ 250ML 250 ML IV SCH (09:51)
[2022-07-28] MEDS: FLUTICASONE PROP NASAL SPR 0.05 % (50MCG) 16GM EACHNOSTRI SCH ×2 (09:52→22:03)
[2022-07-28] MEDS: DOCUSATE SOD 100 MG CAP PO SCH (09:54)
[2022-07-28] MEDS: FLUCONAZOLE 100 MG TAB PO SCH (09:54)
[2022-07-28] MEDS: TRIAMTERENE/HCTZ 37.5/25 MG CAP/TAB PO SCH (09:55)
[2022-07-28] MEDS: guaiFENesin-CODEINE Liq 5 ML UD PO PRN ×3 (09:56→22:02)
[2022-07-28] MEDS: FLECAINIDE ACETATE 50 MG TAB PO SCH ×2 (09:57→22:02)
[2022-07-28] MEDS: DexAMETHasone SOD PHOS 10MG/1ML VIAL INJ IV SCH (09:59)
[2022-07-28 13:00] VITALS: BP 124/90
[2022-07-28 16:28] VITALS: BP 142/92
[2022-07-28 20:00] VITALS: BP 128/86
[2022-07-28] MEDS: TEMAZEPAM 15 MG CAP PO PRN (22:02)
[2022-07-28] MEDS: MONTELUKAST SODIUM 10 MG TAB PO SCH (22:02)
[2022-07-28] MEDS: TRAVATAN EYE DROP LEFTEYE SCH (22:03)
[2022-07-28] MEDS: GABAPENTIN 100 MG CAP PO SCH (22:09)
[2022-07-29] VITALS (8 sets, daily range): BP systolic 107–131; BP diastolic 72–86
[2022-07-29] MEDS: ALBUTEROL SULF 2.5 MG/0.5ML(0.5%) NEB SOLN NEB SCH ×5 (00:11→23:56)
[2022-07-29] MEDS: IPRATROPIUM BROM 0.5 MG/2.5ML INH SOL NEB SCH ×5 (00:11→23:56)
[2022-07-29] MEDS: LEVOTHYROXINE SODIUM 100 MCG TAB PO SCH (06:46)
[2022-07-29 07:00] LABS: Hematocrit 36.7 % (36.0-46.0); Mean Corpuscular Hemoglobin 32.9 pg (28.0-32.0); Mean Corpuscular Hgb Conc. 35.5 g/dL (32.0-36.0); Mean Corpuscular Volume 92.5 fL (80.0-100.0); Red Blood Cells 3.97 10^6/uL (4.0-5.20); Red Cell Distribution Width 12.9 % (11.8-14.3); White Blood Cell 8.9 10^3/uL (4.4-10.8)
[2022-07-29 07:03] LABS: Band Neutrophils % (manual) 0; Basophils % (manual) 0 (0.0-2.0); Blast Cells 0; Eosinophils % (manual) 0 (0-7); Metamyelocytes % 0; Myelocytes % 0; Promyelocytes % 0; Reactive Lymphocytes 0
[2022-07-29 07:06] LABS: BUN/Creatinine Ratio 19.8 (10.0-20.0); Calcium 9.6 mg/dL (8.5-10.1); Potassium 4.7 mmol/L (3.5-5.1)
[2022-07-29 07:34] LABS: Lymphocytes % (manual) 17 (10.0-50.0); Monocytes % (manual) 9 (0-12)
[2022-07-29] MEDS: OTEZLA 30 MG PO SCH ×2 (10:00→21:52)
[2022-07-29] MEDS: TRIAMTERENE/HCTZ 37.5/25 MG CAP/TAB PO SCH (10:00)
[2022-07-29] MEDS: FLUTICASONE PROP NASAL SPR 0.05 % (50MCG) 16GM EACHNOSTRI SCH ×2 (10:08→21:49)
[2022-07-29] MEDS: AZITHROMYCIN 500MG/ 250ML 250 ML IV SCH (10:08)
[2022-07-29] MEDS: guaiFENesin-CODEINE Liq 5 ML UD PO PRN ×3 (10:08→21:49)
[2022-07-29] MEDS: FLECAINIDE ACETATE 50 MG TAB PO SCH ×2 (10:09→21:50)
[2022-07-29] MEDS: DOCUSATE SOD 100 MG CAP PO SCH (10:09)
[2022-07-29] MEDS: FLUCONAZOLE 100 MG TAB PO SCH (10:09)
[2022-07-29] MEDS: DexAMETHasone SOD PHOS 10MG/1ML VIAL INJ IV SCH (10:11)
[2022-07-29] MEDS: BUDESONIDE (INHALATION) 0.5 MG/2 ML NEB NEB SCH ×2 (11:45→18:30)
[2022-07-29] MEDS: TEMAZEPAM 15 MG CAP PO PRN (21:49)
[2022-07-29] MEDS: MONTELUKAST SODIUM 10 MG TAB PO SCH (21:50)
[2022-07-29] MEDS: GABAPENTIN 100 MG CAP PO SCH (21:51)
[2022-07-29] MEDS: TRAVATAN EYE DROP LEFTEYE SCH (21:56)
[2022-07-30 05:00] VITALS: BP 119/68
[2022-07-30] MEDS: ALBUTEROL SULF 2.5 MG/0.5ML(0.5%) NEB SOLN NEB SCH ×2 (06:34→12:16)
[2022-07-30] MEDS: BUDESONIDE (INHALATION) 0.5 MG/2 ML NEB NEB SCH (06:34)
[2022-07-30] MEDS: IPRATROPIUM BROM 0.5 MG/2.5ML INH SOL NEB SCH ×2 (06:34→12:16)
[2022-07-30] MEDS: LEVOTHYROXINE SODIUM 100 MCG TAB PO SCH (06:44)
[2022-07-30 08:00] VITALS: BP 112/73
[2022-07-30 09:26] VITALS: BP 112/73
[2022-07-30] MEDS: AZITHROMYCIN 500MG/ 250ML 250 ML IV SCH (09:46)
[2022-07-30] MEDS: FLUCONAZOLE 100 MG TAB PO SCH (09:46)
[2022-07-30] MEDS: DOCUSATE SOD 100 MG CAP PO SCH (09:46)
[2022-07-30] MEDS: TRIAMTERENE/HCTZ 37.5/25 MG CAP/TAB PO SCH (09:47)
[2022-07-30] MEDS: FLECAINIDE ACETATE 50 MG TAB PO SCH (09:47)
[2022-07-30] MEDS: DexAMETHasone SOD PHOS 10MG/1ML VIAL INJ IV SCH (09:48)
[2022-07-30] MEDS: FLUTICASONE PROP NASAL SPR 0.05 % (50MCG) 16GM EACHNOSTRI SCH (09:48)
[2022-07-30] MEDS: OTEZLA 30 MG PO SCH (10:00)
[2022-07-30] MEDS: guaiFENesin-CODEINE Liq 5 ML UD PO PRN (10:04)
[2022-07-30 12:44] VITALS: BP 117/82
[2022-07-30 15:00] VITALS: BP 117/82
== END 2022-07-30 17:35 | disposition home or self-care (01) | DRG 202 ==
LOC: WEST WING 21:27
PROVIDERS: ADMIT Internal Medicine Cardiovascular Disease; ATTEND Internal Medicine Cardiovascular Disease
DX: J45.901 Unspecified asthma with (acute) exacerbation (principal); J96.90 Respiratory failure, unspecified, unspecified whether with hypoxia or hypercapnia; E87.1 Hypo-osmolality and hyponatremia; J98.11 Atelectasis; I10 Essential (primary) hypertension; B19.20 Unspecified viral hepatitis C without hepatic coma; E78.5 Hyperlipidemia, unspecified; J84.10 Pulmonary fibrosis, unspecified; I48.91 Unspecified atrial fibrillation; G43.909 Migraine, unspecified, not intractable, without status migrainosus; G89.4 Chronic pain syndrome; J44.9 Chronic obstructive pulmonary disease, unspecified; Z80.2 Family history of malignant neoplasm of other respiratory and intrathoracic organs; Z82.49 Family history of ischemic heart disease and other diseases of the circulatory system
CPT/HCPCS: 36415; 71045; 71260; 80048; 85007; 85025; 85027; 86803; 87340; 94640; 96372; G0378; G0463; J1100

== ENCOUNTER 2022-08-18 14:13 | Inpatient (IN) | payer MEDICARE, BC ==
[~2022-08-18] VITALS: Ht 170.2 cm; Wt 84.6 kg
[~2022-08-18 14:13] MED LIST changes: +APRE30TA PO; +ASPI-543 PO; +CHOL20007 PO; +DOCU-94 PO; +FLE50T PO; +FORM20NE3 IN; +HYDR-4072; +LEVA1NEB5 NEB; +LORA-622 PO; +MAGN400T40 PO; +MELO-61 PO; +MONT5CHW12 PO; +OME20GT PO; +ROFL1TAB2 PO; +SUMA50TA2 PO; +TRAV0.00 EACHEYE; +[UNRECOGNIZED DRUG - CODE] EACHEYE
[2022-08-18] MEDS ORDERED: ASPirin 325 MG TAB PO ONE (14:30)
[2022-08-18 14:53] LABS: Basophils # (auto) 0 10 ^3/uL (0-0.2); Basophils % (auto) 0.6 % (0.0-2.0); Eosinophils # (auto) 0.1 10 ^3/uL (0-0.8); Eosinophils % (auto) 1.1 % (0.0-7.0); Hematocrit 36.8 % (36.0-46.0); Hemoglobin 12.4 g/dL (12.2-16.2); Lymphocytes # (auto) 1.6 10 ^3/uL (0.4-5.4); Lymphocytes % (auto) 22.6 % (10.0-50.0); Mean Corpuscular Hemoglobin 32.3 pg (28.0-32.0); Mean Corpuscular Hgb Conc. 33.7 g/dL (32.0-36.0); Mean Corpuscular Volume 95.8 fL (80.0-100.0); Monocytes # (auto) 0.5 10 ^3/uL (0-1.3); Monocytes % (auto) 7.4 % (0.0-12.0); Neutrophils % (auto) 68.3 % (37.0-80.0); Red Blood Cells 3.84 10^6/uL (4.0-5.20); Red Cell Distribution Width 14.1 % (11.8-14.3); White Blood Cell 7.3 10^3/uL (4.4-10.8)
[2022-08-18 15:28] LABS: Albumin 3.5 g/dL (3.4-5.0); BUN/Creatinine Ratio 15.7 (10.0-20.0); Calcium 8.8 mg/dL (8.5-10.1); Potassium 4.5 mmol/L (3.5-5.1)
[2022-08-18 15:58] LABS: Bilirubin, Total 0.8 mg/dL (0.2-1.0); Total Protein 6.2 g/dL (6.4-8.2)
[2022-08-18] MEDS ORDERED: MORPHINE SULFATE INJ 2 MG/ml SYRG IV PRN ×2 (18:15)
[2022-08-18] MEDS ORDERED: NITROGLYCERIN 0.4 MG SL TAB SL PRN (18:15)
[2022-08-18] MEDS ORDERED: ACETAMINOPHEN 325 MG TAB PO PRN ×2 (18:15→18:30)
[2022-08-18] MEDS ORDERED: ALBUTEROL SULF 2.5 MG/0.5ML(0.5%) NEB SOLN NEB PRN (18:15)
[2022-08-18] MEDS ORDERED: IOHEXOL 350 MG/ML 100ML IJ ONE (18:29)
[2022-08-18] MEDS ORDERED: hydrALAZINE HCL 20 MG/ML VL IV PRN (18:30)
[2022-08-18 20:00] VITALS: BP 186/109
[2022-08-18] MEDS ORDERED: IPRATROPIUM BROM 0.5 MG/2.5ML INH SOL NEB SCH (22:00)
[2022-08-18] MEDS: IPRATROPIUM BROM 0.5 MG/2.5ML INH SOL NEB SCH (22:03)
[2022-08-18] MEDS: ALBUTEROL SULF 2.5 MG/0.5ML(0.5%) NEB SOLN NEB SCH (22:04)
[2022-08-19] MEDS: MONTELUKAST SODIUM 10 MG TAB PO SCH ×2 (00:45→21:53)
[2022-08-19] MEDS: FLECAINIDE ACETATE 50 MG TAB PO SCH ×3 (00:54→21:53)
[2022-08-19] MEDS: APREMILAST BASE 30 MG PO SCH ×3 (00:54→21:53)
[2022-08-19 06:42] LABS: Basophils # (auto) 0 10 ^3/uL (0-0.2); Basophils % (auto) 0.6 % (0.0-2.0); Eosinophils # (auto) 0.1 10 ^3/uL (0-0.8); Hematocrit 36.4 % (36.0-46.0); Hemoglobin 12.4 g/dL (12.2-16.2); Lymphocytes # (auto) 1.5 10 ^3/uL (0.4-5.4); Mean Corpuscular Hemoglobin 32.8 pg (28.0-32.0); Mean Corpuscular Hgb Conc. 34.2 g/dL (32.0-36.0); Monocytes # (auto) 0.5 10 ^3/uL (0-1.3); Monocytes % (auto) 6.6 % (0.0-12.0); Neutrophils # (auto) 5.3 10 ^3/uL (1.6-8.6); Neutrophils % (auto) 71.8 % (37.0-80.0); Nucleated Red Blood Cells % 0.1 %; White Blood Cell 7.3 10^3/uL (4.4-10.8)
[2022-08-19] MEDS: ALBUTEROL SULF 2.5 MG/0.5ML(0.5%) NEB SOLN NEB SCH ×5 (06:44→22:09)
[2022-08-19] MEDS: IPRATROPIUM BROM 0.5 MG/2.5ML INH SOL NEB SCH ×5 (06:44→22:09)
[2022-08-19 06:53] LABS: Albumin 3.8 g/dL (3.4-5.0); Calcium 9.2 mg/dL (8.5-10.1); Potassium 4.8 mmol/L (3.5-5.1)
[2022-08-19 06:58] LABS: Bilirubin, Total 0.6 mg/dL (0.2-1.0)
[2022-08-19 07:06] LABS: BUN/Creatinine Ratio 16.9 (10.0-20.0)
[2022-08-19] MEDS: SODIUM CHLORIDE 0.9% 1,000 ML IV SCH ×3 (09:29→21:52)
[2022-08-19] MEDS: ENOXAPARIN SOD 40 MG/0.4 ML SYRINGE SC SCH (09:46)
[2022-08-19] MEDS: CHOLECALCIFEROL (VITD3) 2,000 UNIT CAP/TAB PO SCH (09:46)
[2022-08-19] MEDS: ASPirin-EC 81 mg tab PO SCH (09:46)
[2022-08-19] MEDS: MAGNESIUM OXIDE 400 MG TAB PO SCH (09:46)
[2022-08-19] MEDS: OMEPRAZOLE-SOD BICARB 20 MG POWDER PO SCH (09:47)
[2022-08-19] MEDS ORDERED: ENOXAPARIN SOD 40 MG/0.4 ML SYRINGE SC SCH (10:00)
[2022-08-20] MEDS: HYDROcodone-ACET 5/325MG TAB PO PRN ×2 (02:18→13:40)
[2022-08-20] MEDS: LEVALBUTEROL HCL 1.25 MG/3 ML NEB NEB SCH ×3 (06:06→18:54)
[2022-08-20 08:42] LABS: Urine Bacteria NONE SEEN /hpf (None Seen); Urine Blood Negative /uL (Negative); Urine Specific Gravity 1.007 (1.001-1.035); Urine WBC 1 /hpf (0 - 5)
[2022-08-20] MEDS: SODIUM CHLORIDE 0.9% 1,000 ML IV SCH ×2 (10:15→21:27)
[2022-08-20] MEDS: MAGNESIUM OXIDE 400 MG TAB PO SCH (10:21)
[2022-08-20] MEDS: ENOXAPARIN SOD 40 MG/0.4 ML SYRINGE SC SCH (10:21)
[2022-08-20] MEDS: CHOLECALCIFEROL (VITD3) 2,000 UNIT CAP/TAB PO SCH (10:21)
[2022-08-20] MEDS: ASPirin-EC 81 mg tab PO SCH (10:21)
[2022-08-20] MEDS: FLECAINIDE ACETATE 50 MG TAB PO SCH ×2 (10:22→21:27)
[2022-08-20] MEDS: APREMILAST BASE 30 MG PO SCH ×2 (10:22→21:56)
[2022-08-20] MEDS: OMEPRAZOLE-SOD BICARB 20 MG POWDER PO SCH (10:23)
[2022-08-20 11:08] VITALS: BP 125/84
[2022-08-20 17:00] VITALS: BP 139/82
[2022-08-20] MEDS: MONTELUKAST SODIUM 10 MG TAB PO SCH (21:27)
[2022-08-20 22:00] VITALS: BP 136/82
[2022-08-21] VITALS (12 sets, daily range): BP systolic 132–174; BP diastolic 67–101
[2022-08-21 06:15] LABS: INR 0.97 (0.9-1.15); Partial Thromboplastin Time 23.6 sec (24.6-33.4)
[2022-08-21] MEDS: LEVALBUTEROL HCL 1.25 MG/3 ML NEB NEB SCH ×3 (06:52→18:00)
[2022-08-21] MEDS: ASPirin-EC 81 mg tab PO SCH (10:00)
[2022-08-21] MEDS: ENOXAPARIN SOD 40 MG/0.4 ML SYRINGE SC SCH (10:00)
[2022-08-21] MEDS ORDERED: IOHEXOL 350 MG/ML 100ML IJ ONE (13:41)
[2022-08-21] MEDS ORDERED: LIDOCAINE 2%HCL (LOCAL ANESTH.) INJ 20ML MDV ONE (13:41)
[2022-08-21] MEDS ORDERED: ANGIOMAX 250 MG VIAL IV ONE (13:47)
[2022-08-21] MEDS ORDERED: MIDAZOLAM HCL 2MG/2ML 2ml VIAL (1mg/ml) ONE (13:47)
[2022-08-21] MEDS ORDERED: fentaNYL CITRATE 100 MCG/2 ML VL ONE (13:47)
[2022-08-21] MEDS ORDERED: SODIUM CHL 0.9% 0 ML ONE (13:48)
[2022-08-21] MEDS ORDERED: ENALAPRILAT 1.25 MG/ML-1ML VIAL IV ONE ×4 (14:01→14:09)
[2022-08-21] MEDS ORDERED: cloNIDine HCL 0.1 MG TAB PO ONE (14:30)
[2022-08-21] MEDS: MAGNESIUM OXIDE 400 MG TAB PO SCH (15:49)
[2022-08-21] MEDS: CHOLECALCIFEROL (VITD3) 2,000 UNIT CAP/TAB PO SCH (15:49)
[2022-08-21] MEDS: FLECAINIDE ACETATE 50 MG TAB PO SCH (15:50)
[2022-08-21] MEDS: OMEPRAZOLE-SOD BICARB 20 MG POWDER PO SCH (15:53)
[2022-08-21] MEDS: APREMILAST BASE 30 MG PO SCH (15:54)
== END 2022-08-21 20:20 | disposition home or self-care (01) | DRG 286 ==
LOC: ER 14:13 → TELE 18:07 → TELE-CENTR 08-20 10:48
PROVIDERS: ADMIT Nurse Practitioner Family; ATTEND Internal Medicine Cardiovascular Disease
PROC: 4A023N8 Measurement of Cardiac Sampling and Pressure, Bilateral, Percutaneous Approach (ICD-10-PCS; principal; 2022-08-21)
PROC: B2111ZZ Fluoroscopy of Multiple Coronary Arteries using Low Osmolar Contrast (ICD-10-PCS; 2022-08-21)
PROC: B2151ZZ Fluoroscopy of Left Heart using Low Osmolar Contrast (ICD-10-PCS; 2022-08-21)
DX: I20.9 Angina pectoris, unspecified (principal); J96.90 Respiratory failure, unspecified, unspecified whether with hypoxia or hypercapnia; J44.1 Chronic obstructive pulmonary disease with (acute) exacerbation; E87.1 Hypo-osmolality and hyponatremia; I10 Essential (primary) hypertension; J84.10 Pulmonary fibrosis, unspecified; E03.9 Hypothyroidism, unspecified; E78.5 Hyperlipidemia, unspecified; F41.9 Anxiety disorder, unspecified; I48.91 Unspecified atrial fibrillation; G43.909 Migraine, unspecified, not intractable, without status migrainosus; F32.A Depression, unspecified
CPT/HCPCS: 36415; 71046; 80053; 81001; 84484; 85025; 85379; 85610; 85730; 86850; 86900; 86901; 93005; 93306; 93460; 94640; 99152; G0378; G0463; J2250

== ENCOUNTER → 2023-01-08 | Outpatient (CLI) | payer MEDICARE, BC ==
[~2023-01-08] MED LIST changes: -LEVA1NEB5 NEB; -MONT5CHW12 PO; -SUMA100T2 PO
== END | disposition home or self-care (01) ==
LOC: Rad HDHVI 08:48
PROVIDERS: ATTEND Internal Medicine Cardiovascular Disease
DX: I08.3 Combined rheumatic disorders of mitral, aortic and tricuspid valves (principal); I11.9 Hypertensive heart disease without heart failure; R06.02 Shortness of breath
CPT/HCPCS: 93306

== ENCOUNTER → 2023-04-29 | Outpatient (CLI) | payer MEDICARE, BC ==
[~2023-04-29] MED LIST changes: +IOHEXOL 350 MG/ML 100ML IJ ONE
[2023-04-29 09:12] VITALS: BP 137/86; PULSE 60; RESP 18; O2SAT 97
[2023-04-29 09:28] VITALS: BP 145/79; PULSE 60; RESP 18; O2SAT 97
== END | disposition home or self-care (01) ==
LOC: Rad HDHVI 09:07
PROVIDERS: ATTEND Internal Medicine Cardiovascular Disease
DX: J84.10 Pulmonary fibrosis, unspecified (principal)
CPT/HCPCS: 71260; G0463; Q9967

== ENCOUNTER → 2023-08-19 | Outpatient (CLI) | payer MEDICARE, BC ==
[~2023-08-19] MED LIST changes: -IOHEXOL 350 MG/ML 100ML IJ ONE
== END | disposition home or self-care (01) ==
LOC: Rad HDHVI 16:24
PROVIDERS: ATTEND Internal Medicine Cardiovascular Disease
DX: J32.9 Chronic sinusitis, unspecified (principal); J34.2 Deviated nasal septum; Z79.899 Other long term (current) drug therapy; R06.02 Shortness of breath; R42 Dizziness and giddiness
CPT/HCPCS: 70220

== ENCOUNTER → 2023-09-09 | Outpatient (CLI) | payer MEDICARE, BC ==
[~2023-09-09] MED LIST changes: +CLON0.1T PO; +FLUT1AER3 IN; +HEPARIN IN NS 1000Units/500mL 0 ML ONE; +IOHEXOL 350 MG/ML 100ML IJ ONE; +LEVAAER IN; +LEVO100T3 PO; +TEMA15CA2 PO; +TRIA37.587 PO
[2023-09-09 13:05] VITALS: BP 122/77; PULSE 79; RESP 16; O2SAT 96
[2023-09-09 13:20] VITALS: BP 117/81; PULSE 75; RESP 16; O2SAT 96
== END | disposition home or self-care (01) ==
LOC: Rad HDHVI 12:53
PROVIDERS: ATTEND Internal Medicine Cardiovascular Disease
DX: Z01.818 Encounter for other preprocedural examination (principal); R06.02 Shortness of breath; R05.9 Cough, unspecified
CPT/HCPCS: 71046; 93005; G0463

== ENCOUNTER 2023-09-10 10:55 | Day surgery (SDC) | payer MEDICARE, BC ==
[2023-09-09 13:48] LABS: Basophils # (auto) 0.1 10 ^3/uL (0-0.2); Basophils % (auto) 0.7 % (0.0-2.0); Eosinophils # (auto) 0.2 10 ^3/uL (0-0.8); Eosinophils % (auto) 1.9 % (0.0-7.0); Hematocrit 40.2 % (36.0-46.0); Hemoglobin 13.7 g/dL (12.2-16.2); Lymphocytes % (auto) 12.2 % (10.0-50.0); Mean Corpuscular Hemoglobin 31.5 pg (28.0-32.0); Mean Corpuscular Hgb Conc. 34.1 g/dL (32.0-36.0); Mean Corpuscular Volume 92.1 fL (80.0-100.0); Monocytes # (auto) 0.5 10 ^3/uL (0-1.3); Monocytes % (auto) 6.8 % (0.0-12.0); Neutrophils # (auto) 6.3 10 ^3/uL (1.6-8.6); Neutrophils % (auto) 78.4 % (37.0-80.0); Red Blood Cells 4.37 10^6/uL (4.0-5.20); Red Cell Distribution Width 12.9 % (11.8-14.3); White Blood Cell 8.1 10^3/uL (4.4-10.8)
[2023-09-09 14:08] LABS: INR 1.02 (0.9-1.15); Partial Thromboplastin Time 24.4 SEC (24.5-34.5); Prothrombin Time 10.8 sec (9.3-11.8)
[2023-09-09 14:11] LABS: Chloride 102 mmol/L (98-107); Sodium 139 mmol/L (136-145)
[2023-09-09 14:12] LABS: Anion Gap 6 (5-15); Calcium 10.4 mg/dL (8.7-10.4); Carbon Dioxide 31 mmol/L (20-30)
[2023-09-09 14:17] LABS: BUN/Creatinine Ratio 10.7 (10.0-20.0); Blood Urea Nitrogen 13 mg/dL (9-23); Glucose 100 mg/dL (74-106)
[~2023-09-10] VITALS: Ht 170.2 cm; Wt 60.3 kg
[~2023-09-10 10:55] MED LIST changes: -FEXO-8 PO; -FLUT500M6 IN; -FORM20NE3 IN; -HEPARIN IN NS 1000Units/500mL 0 ML ONE; -HYDR-4072; -IOHEXOL 350 MG/ML 100ML IJ ONE; -IPR002IS NEB; -LEVAAER IN; -MELO-61 PO; -MONT10TA23 PO; -OME20GT PO; -ORUDIS PO; -ROFL1TAB2 PO; -[UNRECOGNIZED DRUG - CODE] EACHEYE; -[UNRECOGNIZED DRUG - CODE] PO; -colace PO; -prednisone PO
[2023-09-10] MEDS ORDERED: LIDOCAINE 2%HCL (LOCAL ANESTH.) INJ 20ML MDV ONE (13:30)
[2023-09-10] MEDS ORDERED: IOHEXOL 350 MG/ML 100ML IJ ONE ×2 (13:30→13:49)
[2023-09-10] MEDS ORDERED: ANGIOMAX 250 MG VIAL IV ONE (13:35)
[2023-09-10] MEDS ORDERED: fentaNYL CITRATE 100 MCG/2 ML VL ONE (13:35)
[2023-09-10] MEDS ORDERED: MIDAZOLAM HCL 2MG/2ML 2ml VIAL (1mg/ml) ONE (13:36)
[2023-09-10] MEDS ORDERED: SODIUM CHL 0.9% 0 ML ONE (13:36)
== END 2023-09-10 16:50 | disposition home or self-care (01) ==
LOC: CATH 10:55
PROVIDERS: ATTEND Internal Medicine Cardiovascular Disease
DX: R06.02 Shortness of breath (principal); I10 Essential (primary) hypertension; J43.9 Emphysema, unspecified; Z87.891 Personal history of nicotine dependence; Z82.49 Family history of ischemic heart disease and other diseases of the circulatory system; Z80.0 Family history of malignant neoplasm of digestive organs; Z82.5 Family history of asthma and other chronic lower respiratory diseases
CPT/HCPCS: 36415; 80048; 85025; 85610; 85730; 93460; C1760; C1894; J1644; J2250; J3010; Q9967; 99152; 99153

== ENCOUNTER → 2024-03-29 | Outpatient (CLI) | payer MEDICARE, BC ==
[2024-03-29 11:22] VITALS: BP 133/93; PULSE 67; RESP 16; O2SAT 99
[2024-03-29] MEDS: methylPREDNISolone SOD SUCC 125 MG/2 ML VL IV ONE (11:22)
[2024-03-29] MEDS: levoFLOXacin 500MG 100 ML IV ONE ×2 (11:22→11:38)
[2024-03-29] MEDS: methylPREDNISolone SOD SUCC 125 MG/2 ML VL ONE (11:38)
[2024-03-29 12:40] VITALS: BP 133/79; PULSE 58; RESP 16; O2SAT 99
--- NOTE | 2024-03-29 13:02 | DVH ---
EXAM: XY CHEST TWO VIEWS ROUTINE CLINICAL HISTORY: SOB COMPARISON: XY CHEST TWO VIEWS ROUTINE on DOS: 09/09/23, XY CHEST TWO VIEWS ROUTINE on DOS: 08/18/22, X Y CHEST TWO VIEWS ROUTINE on DOS: 07/11/22, CHEST TWO VIEWS ROUTINE on DOS: 03/04/21, CHEST TWO VIEWS RO UTINE on DOS: 02/11/21 TECHNIQUE: Frontal and lateral view of the chest was obtained FINDINGS: Lines and Tubes: None Lungs: No focal consolidation. Pleura: No effusion. No pneumothorax. Cardiomediastinal contours: Unremarkable Bones: No acute osseous abnormality. IMPRESSION: No acute cardiopulmonary disease.
== END | disposition home or self-care (01) ==
LOC: Rad HDHVI 11:27
PROVIDERS: ATTEND Internal Medicine Cardiovascular Disease
DX: J06.9 Acute upper respiratory infection, unspecified (principal); R06.02 Shortness of breath; R05.9 Cough, unspecified
CPT/HCPCS: 71046; 94640; 96365; 96374; G0463; J1956; J2919

== ENCOUNTER → 2024-04-01 | Outpatient (CLI) | payer MEDICARE, BC ==
[2024-04-01 09:30] VITALS: BP 145/93; PULSE 61; RESP 16; O2SAT 99
[2024-04-01] MEDS: CYANOCOBALAMIN (B-12) 1000 MCG/1 ML VIAL ONE (09:54)
[2024-04-01] MEDS: CYANOCOBALAMIN (B-12) 1000 MCG/1 ML VIAL IM ONE (09:55)
[2024-04-01 10:00] VITALS: BP 147/81; PULSE 60; RESP 16; O2SAT 99
== END | disposition home or self-care (01) ==
LOC: CHF HDHVI 09:30
PROVIDERS: ATTEND Internal Medicine Cardiovascular Disease
DX: J06.9 Acute upper respiratory infection, unspecified (principal); E53.8 Deficiency of other specified B group vitamins; I11.9 Hypertensive heart disease without heart failure; J43.9 Emphysema, unspecified; I48.91 Unspecified atrial fibrillation; G43.909 Migraine, unspecified, not intractable, without status migrainosus; E03.9 Hypothyroidism, unspecified; F32.A Depression, unspecified; F41.9 Anxiety disorder, unspecified; D64.9 Anemia, unspecified; Z87.891 Personal history of nicotine dependence
CPT/HCPCS: 96372; G0463; J3420

== ENCOUNTER → 2024-04-07 | Outpatient (CLI) | payer MEDICARE, BC ==
[2024-04-07] MEDS: MEROPENEM 1GM IVPB 50 ML IV ONE ×2 (09:59→10:05)
[2024-04-07] MEDS: methylPREDNISolone SOD SUCC 125 MG/2 ML VL ONE (09:59)
[2024-04-07 10:00] VITALS: BP 114/79; PULSE 65; RESP 18; O2SAT 97
[2024-04-07] MEDS: methylPREDNISolone SOD SUCC 125 MG/2 ML VL IV ONE (10:04)
[2024-04-07 11:05] VITALS: BP 116/68; PULSE 57; RESP 18; O2SAT 97
== END | disposition home or self-care (01) ==
LOC: CHF HDHVI 09:55
PROVIDERS: ATTEND Internal Medicine Cardiovascular Disease
DX: J06.9 Acute upper respiratory infection, unspecified (principal); I11.0 Hypertensive heart disease with heart failure; I50.9 Heart failure, unspecified; I48.0 Paroxysmal atrial fibrillation; G43.909 Migraine, unspecified, not intractable, without status migrainosus; E78.5 Hyperlipidemia, unspecified; E03.9 Hypothyroidism, unspecified; Z87.891 Personal history of nicotine dependence; Z79.899 Other long term (current) drug therapy
CPT/HCPCS: 96365; 96375; G0463; J1642; J2185; J2919

== ENCOUNTER → 2024-04-08 | Outpatient (CLI) | payer MEDICARE, BC ==
[2024-04-08 09:05] VITALS: BP 113/66; PULSE 65; RESP 16; O2SAT 96
[2024-04-08] MEDS: methylPREDNISolone SOD SUCC 125 MG/2 ML VL ONE (09:24)
[2024-04-08] MEDS: MEROPENEM 1GM IVPB 50 ML IV ONE ×2 (09:24→09:28)
[2024-04-08] MEDS: methylPREDNISolone SOD SUCC 125 MG/2 ML VL IV ONE (09:27)
[2024-04-08 11:03] VITALS: BP 126/78; PULSE 58; RESP 16; O2SAT 96
== END | disposition home or self-care (01) ==
LOC: CHF HDHVI 08:59
PROVIDERS: ATTEND Internal Medicine Cardiovascular Disease
DX: J06.9 Acute upper respiratory infection, unspecified (principal); I11.0 Hypertensive heart disease with heart failure; I50.9 Heart failure, unspecified; E78.5 Hyperlipidemia, unspecified; E03.9 Hypothyroidism, unspecified; G43.909 Migraine, unspecified, not intractable, without status migrainosus; I48.0 Paroxysmal atrial fibrillation; F41.9 Anxiety disorder, unspecified; F32.A Depression, unspecified; Z79.899 Other long term (current) drug therapy; J45.909 Unspecified asthma, uncomplicated; Z87.891 Personal history of nicotine dependence
CPT/HCPCS: 96365; 96366; 96375; G0463; J2185; J2919

== ENCOUNTER → 2024-04-13 | Outpatient (CLI) | payer MEDICARE, BC ==
[2024-04-13 08:40] VITALS: BP 106/69; PULSE 61; RESP 18; O2SAT 99
[2024-04-13] MEDS: MEROPENEM 1GM IVPB 50 ML IV ONE ×2 (08:44→08:53)
[2024-04-13] MEDS: methylPREDNISolone SOD SUCC 40 MG/ML VL ONE (08:44)
[2024-04-13] MEDS: methylPREDNISolone SOD SUCC 125 MG/2 ML VL IV ONE (08:50)
[2024-04-13 09:51] VITALS: BP 108/68; PULSE 60; RESP 18; O2SAT 99
== END | disposition home or self-care (01) ==
LOC: CHF HDHVI 08:24
PROVIDERS: ATTEND Internal Medicine Cardiovascular Disease
DX: J06.9 Acute upper respiratory infection, unspecified (principal); I11.0 Hypertensive heart disease with heart failure; I50.9 Heart failure, unspecified; J43.9 Emphysema, unspecified; I48.0 Paroxysmal atrial fibrillation; G43.909 Migraine, unspecified, not intractable, without status migrainosus; E78.5 Hyperlipidemia, unspecified; E03.9 Hypothyroidism, unspecified; F41.9 Anxiety disorder, unspecified; F32.A Depression, unspecified; Z79.899 Other long term (current) drug therapy; Z87.891 Personal history of nicotine dependence
CPT/HCPCS: 96365; 96375; G0463; J2185; J2919

== ENCOUNTER → 2024-07-11 | Outpatient (CLI) | payer MEDICARE, BC ==
[2024-07-11 15:00] VITALS: BP 146/84; PULSE 65; RESP 18; O2SAT 96
[2024-07-11] MEDS: MEROPENEM 1GM IVPB 50 ML IV ONE ×2 (15:07→16:00)
[2024-07-11] MEDS: MEROPENEM 1GM IVPB 100 ML IV ONE (15:32)
[2024-07-11 17:10] VITALS: BP 122/82; PULSE 59; RESP 18; O2SAT 96
== END | disposition home or self-care (01) ==
LOC: CHF HDHVI 15:03
PROVIDERS: ATTEND Internal Medicine Cardiovascular Disease
DX: J18.9 Pneumonia, unspecified organism (principal); I11.0 Hypertensive heart disease with heart failure; I50.9 Heart failure, unspecified; I48.0 Paroxysmal atrial fibrillation; J43.9 Emphysema, unspecified; J45.909 Unspecified asthma, uncomplicated; G43.909 Migraine, unspecified, not intractable, without status migrainosus; E78.5 Hyperlipidemia, unspecified; E03.9 Hypothyroidism, unspecified; F41.9 Anxiety disorder, unspecified; F32.A Depression, unspecified; Z87.891 Personal history of nicotine dependence; Z79.899 Other long term (current) drug therapy
CPT/HCPCS: 96365; 96366; G0463; J1642; J2185

== ENCOUNTER → 2024-07-13 | Outpatient (CLI) | payer MEDICARE, BC ==
[2024-07-13 08:27] VITALS: BP 126/80; PULSE 65; RESP 16; O2SAT 99
[2024-07-13] MEDS: MEROPENEM 1GM IVPB 100 ML IV ONE (08:38)
[2024-07-13] MEDS: MEROPENEM 1GM IVPB 50 ML IV ONE ×2 (08:40→09:30)
[2024-07-13 10:49] VITALS: BP 106/79; PULSE 63; RESP 16; O2SAT 99
== END | disposition home or self-care (01) ==
LOC: CHF HDHVI 08:22
PROVIDERS: ATTEND Internal Medicine Cardiovascular Disease
DX: J18.9 Pneumonia, unspecified organism (principal); I11.0 Hypertensive heart disease with heart failure; I50.9 Heart failure, unspecified; E11.9 Type 2 diabetes mellitus without complications; J43.9 Emphysema, unspecified; I48.0 Paroxysmal atrial fibrillation; M06.9 Rheumatoid arthritis, unspecified; G43.909 Migraine, unspecified, not intractable, without status migrainosus; M19.90 Unspecified osteoarthritis, unspecified site; E78.5 Hyperlipidemia, unspecified; E03.9 Hypothyroidism, unspecified; F41.9 Anxiety disorder, unspecified; F32.A Depression, unspecified; Z79.899 Other long term (current) drug therapy; Z87.891 Personal history of nicotine dependence
CPT/HCPCS: 96365; 96366; G0463; J1642; J2185

== ENCOUNTER → 2024-07-14 | Outpatient (CLI) | payer MEDICARE, BC ==
[~2024-07-14] MED LIST changes: +MEROPENEM 1GM IVPB 50 ML IV ONE
[2024-07-14 08:30] VITALS: BP 110/85; PULSE 81; RESP 16; O2SAT 100
[2024-07-14] MEDS: MEROPENEM 1GM IVPB 100 ML IV ONE (08:37)
[2024-07-14] MEDS: MEROPENEM 1GM IVPB 50 ML IV ONE ×2 (08:41→09:30)
[2024-07-14 10:50] VITALS: BP 118/76; PULSE 59; RESP 16; O2SAT 99
== END | disposition home or self-care (01) ==
LOC: CHF HDHVI 08:26
PROVIDERS: ATTEND Internal Medicine Cardiovascular Disease
DX: J18.9 Pneumonia, unspecified organism (principal); I11.0 Hypertensive heart disease with heart failure; I50.9 Heart failure, unspecified; F41.9 Anxiety disorder, unspecified; E03.9 Hypothyroidism, unspecified; F32.A Depression, unspecified; G43.909 Migraine, unspecified, not intractable, without status migrainosus; J43.9 Emphysema, unspecified; I48.0 Paroxysmal atrial fibrillation; M06.9 Rheumatoid arthritis, unspecified; E11.9 Type 2 diabetes mellitus without complications; E78.5 Hyperlipidemia, unspecified; Z79.899 Other long term (current) drug therapy; Z87.891 Personal history of nicotine dependence; Z87.440 Personal history of urinary (tract) infections
CPT/HCPCS: 96365; 96366; G0463; J2185

== ENCOUNTER → 2024-07-15 | Outpatient (CLI) | payer MEDICARE, BC ==
[~2024-07-15] MED LIST changes: -MEROPENEM 1GM IVPB 50 ML IV ONE
[2024-07-15 08:20] VITALS: BP 146/87; PULSE 64; RESP 18; O2SAT 99
[2024-07-15] MEDS: MEROPENEM 1GM IVPB 100 ML IV ONE (08:37)
[2024-07-15] MEDS: MEROPENEM 1GM IVPB 50 ML IV ONE ×2 (08:43→09:20)
[2024-07-15 10:47] VITALS: BP 132/84; PULSE 57; RESP 18; O2SAT 99
== END | disposition home or self-care (01) ==
LOC: CHF HDHVI 08:20
PROVIDERS: ATTEND Internal Medicine Cardiovascular Disease
DX: J18.9 Pneumonia, unspecified organism (principal); E03.9 Hypothyroidism, unspecified; F32.A Depression, unspecified; E78.5 Hyperlipidemia, unspecified; I11.0 Hypertensive heart disease with heart failure; I50.9 Heart failure, unspecified; M19.90 Unspecified osteoarthritis, unspecified site; I48.91 Unspecified atrial fibrillation; G43.909 Migraine, unspecified, not intractable, without status migrainosus; Z79.899 Other long term (current) drug therapy
CPT/HCPCS: 96365; 96366; G0463; J2185

== ENCOUNTER 2024-09-27 10:17 | Outpatient (CLI) | payer MEDICARE, BC ==
--- NOTE | 2024-09-27 11:41 | DVH ---
PARANASAL SINUSES: INDICATION: SINUSITIS TECHNIQUE: 4 views FINDINGS: The paranasal sinuses are well-aerated. No abnormal soft tissue densities or air-fluid levels are present. Osseous alignment is anatomic. No displaced fractures are demonstrated. IMPRESSION: Normal sinus series
== END 2024-09-27 17:00 | disposition home or self-care (01) ==
LOC: Rad HDHVI 10:17
PROVIDERS: ATTEND Internal Medicine Cardiovascular Disease
DX: J32.9 Chronic sinusitis, unspecified (principal)
CPT/HCPCS: 70220

== ENCOUNTER 2024-10-28 13:20 | Outpatient (CLI) | payer MEDICARE, BC ==
[2024-10-28 13:20] VITALS: BP 114/66; PULSE 64; RESP 20; O2SAT 98
[2024-10-28] MEDS: MEROPENEM 1GM IVPB 50 ML IV ONE ×2 (13:20→14:20)
[2024-10-28] MEDS: MEROPENEM 1GM IVPB 100 ML IV ONE (13:44)
[2024-10-28 15:49] VITALS: BP 131/74; PULSE 54; RESP 18; O2SAT 98
== END 2024-10-28 17:00 | disposition home or self-care (01) ==
LOC: CHF HDHVI 13:20
PROVIDERS: ATTEND Internal Medicine Cardiovascular Disease
DX: J20.9 Acute bronchitis, unspecified (principal); J32.9 Chronic sinusitis, unspecified; I11.0 Hypertensive heart disease with heart failure; I50.9 Heart failure, unspecified; F32.A Depression, unspecified; E78.5 Hyperlipidemia, unspecified; E03.9 Hypothyroidism, unspecified; G43.909 Migraine, unspecified, not intractable, without status migrainosus; I48.0 Paroxysmal atrial fibrillation; F41.9 Anxiety disorder, unspecified; M06.9 Rheumatoid arthritis, unspecified; J43.9 Emphysema, unspecified; E11.9 Type 2 diabetes mellitus without complications; Z87.891 Personal history of nicotine dependence; Z87.440 Personal history of urinary (tract) infections; Z79.899 Other long term (current) drug therapy
CPT/HCPCS: 96365; 96366; G0463; J2185

== ENCOUNTER 2025-02-06 13:30 | Outpatient (CLI) | payer MEDICARE, BC ==
[2025-02-06 13:30] VITALS: BP 105/65; PULSE 74; RESP 16; O2SAT 97
[2025-02-06] MEDS: MEROPENEM 1GM IVPB 50 ML IV ONE ×2 (13:37→13:52)
[2025-02-06 15:10] VITALS: BP 107/58; PULSE 65; RESP 16; O2SAT 97
== END 2025-02-06 17:00 | disposition home or self-care (01) ==
LOC: CHF HDHVI 13:30
PROVIDERS: ATTEND Internal Medicine Cardiovascular Disease
DX: J06.9 Acute upper respiratory infection, unspecified (principal); I11.0 Hypertensive heart disease with heart failure; I50.9 Heart failure, unspecified; F41.9 Anxiety disorder, unspecified; F32.A Depression, unspecified; J43.9 Emphysema, unspecified; E78.5 Hyperlipidemia, unspecified; E03.9 Hypothyroidism, unspecified; E11.9 Type 2 diabetes mellitus without complications; I48.0 Paroxysmal atrial fibrillation; M06.9 Rheumatoid arthritis, unspecified; G43.909 Migraine, unspecified, not intractable, without status migrainosus; Z79.899 Other long term (current) drug therapy; Z87.891 Personal history of nicotine dependence; Z87.440 Personal history of urinary (tract) infections
CPT/HCPCS: 96365; G0463; J1642; J2185

== ENCOUNTER 2025-02-07 10:09 | Outpatient (CLI) | payer MEDICARE, BC ==
[2025-02-07 10:14] VITALS: BP 126/83; PULSE 60; RESP 16; O2SAT 98
[2025-02-07] MEDS: MEROPENEM 1GM IVPB 50 ML IV ONE ×2 (10:28→10:30)
[2025-02-07 11:45] VITALS: BP 156/82; PULSE 57; RESP 16; O2SAT 98
[2025-02-08] MEDS ORDERED: MEROPENEM 1GM IVPB 50 ML IV ONE (10:12)
== END 2025-02-07 17:00 | disposition home or self-care (01) ==
LOC: CHF HDHVI 10:09
PROVIDERS: ATTEND Internal Medicine Cardiovascular Disease
DX: J06.9 Acute upper respiratory infection, unspecified (principal); I11.0 Hypertensive heart disease with heart failure; I50.9 Heart failure, unspecified; F41.9 Anxiety disorder, unspecified; F32.A Depression, unspecified; J43.9 Emphysema, unspecified; E78.5 Hyperlipidemia, unspecified; E03.9 Hypothyroidism, unspecified; E11.9 Type 2 diabetes mellitus without complications; I48.0 Paroxysmal atrial fibrillation; M06.9 Rheumatoid arthritis, unspecified; G43.909 Migraine, unspecified, not intractable, without status migrainosus; Z79.899 Other long term (current) drug therapy; Z87.891 Personal history of nicotine dependence; Z87.440 Personal history of urinary (tract) infections
CPT/HCPCS: 96365; G0463; J1642; J2185

== ENCOUNTER 2025-02-08 10:20 | Outpatient (CLI) | payer MEDICARE, BC ==
[2025-02-08 10:07] VITALS: BP 126/75; PULSE 67; RESP 17; O2SAT 98
[2025-02-08] MEDS: MEROPENEM 1GM IVPB 50 ML IV ONE (10:15)
[2025-02-08 11:12] VITALS: BP 111/64; PULSE 59; RESP 16; O2SAT 98
== END 2025-02-08 17:00 | disposition home or self-care (01) ==
LOC: CHF HDHVI 10:20
PROVIDERS: ATTEND Internal Medicine Cardiovascular Disease
DX: J06.9 Acute upper respiratory infection, unspecified (principal); I11.0 Hypertensive heart disease with heart failure; I50.9 Heart failure, unspecified; F41.9 Anxiety disorder, unspecified; F32.A Depression, unspecified; J43.9 Emphysema, unspecified; E78.5 Hyperlipidemia, unspecified; E03.9 Hypothyroidism, unspecified; E11.9 Type 2 diabetes mellitus without complications; I48.0 Paroxysmal atrial fibrillation; M06.9 Rheumatoid arthritis, unspecified; G43.909 Migraine, unspecified, not intractable, without status migrainosus; Z79.899 Other long term (current) drug therapy; Z87.891 Personal history of nicotine dependence; Z87.440 Personal history of urinary (tract) infections
CPT/HCPCS: 96365; G0463; J2185

== ENCOUNTER 2025-02-10 11:21 | Outpatient (CLI) | payer MEDICARE, BC ==
[2025-02-10 11:15] VITALS: BP 150/81; PULSE 52; RESP 16; O2SAT 99
[2025-02-10] MEDS: MEROPENEM 1GM IVPB 50 ML IV ONE ×2 (11:38→11:42)
[2025-02-10 12:39] VITALS: BP 131/82; PULSE 64; RESP 16; O2SAT 99
== END 2025-02-10 17:00 | disposition home or self-care (01) ==
LOC: CHF HDHVI 11:21
PROVIDERS: ATTEND Internal Medicine Cardiovascular Disease
DX: J06.9 Acute upper respiratory infection, unspecified (principal); I11.0 Hypertensive heart disease with heart failure; I50.9 Heart failure, unspecified; F32.A Depression, unspecified; J43.9 Emphysema, unspecified; E78.5 Hyperlipidemia, unspecified; F41.9 Anxiety disorder, unspecified; E03.9 Hypothyroidism, unspecified; E11.9 Type 2 diabetes mellitus without complications; G43.909 Migraine, unspecified, not intractable, without status migrainosus; I48.0 Paroxysmal atrial fibrillation; M06.9 Rheumatoid arthritis, unspecified; Z79.899 Other long term (current) drug therapy; Z87.891 Personal history of nicotine dependence; Z87.440 Personal history of urinary (tract) infections
CPT/HCPCS: 96365; G0463; J2185

== ENCOUNTER 2025-02-13 09:30 | Outpatient (CLI) | payer MEDICARE, BC ==
[2025-02-13 09:42] VITALS: BP 125/82; PULSE 65; RESP 16; O2SAT 97
[2025-02-13] MEDS: MEROPENEM 1GM IVPB 100 ML IV ONE (09:52)
[2025-02-13] MEDS: MEROPENEM 1GM IVPB 50 ML IV ONE ×2 (10:00→11:00)
[2025-02-13 12:20] VITALS: BP 135/72; PULSE 58; RESP 16; O2SAT 97
== END 2025-02-13 17:00 | disposition home or self-care (01) ==
LOC: CHF HDHVI 09:30
PROVIDERS: ATTEND Internal Medicine Cardiovascular Disease
DX: J06.9 Acute upper respiratory infection, unspecified (principal); I11.0 Hypertensive heart disease with heart failure; I50.9 Heart failure, unspecified; F41.9 Anxiety disorder, unspecified; F32.A Depression, unspecified; J43.9 Emphysema, unspecified; E78.5 Hyperlipidemia, unspecified; E03.9 Hypothyroidism, unspecified; E11.9 Type 2 diabetes mellitus without complications; I48.0 Paroxysmal atrial fibrillation; M06.9 Rheumatoid arthritis, unspecified; G43.909 Migraine, unspecified, not intractable, without status migrainosus; Z79.899 Other long term (current) drug therapy; Z87.891 Personal history of nicotine dependence; Z87.440 Personal history of urinary (tract) infections
CPT/HCPCS: 96365; 96366; G0463; J1642; J2185

== ENCOUNTER 2025-02-14 09:39 | Outpatient (CLI) | payer MEDICARE, BC ==
[2025-02-14 09:58] VITALS: BP 141/88; PULSE 61; RESP 16; O2SAT 97
[2025-02-14] MEDS: MEROPENEM 1GM IVPB 100 ML IV ONE (10:09)
[2025-02-14] MEDS: MEROPENEM 1GM IVPB 50 ML IV ONE ×2 (10:12→11:00)
[2025-02-14 12:27] VITALS: BP 133/67; PULSE 72; RESP 16; O2SAT 97
== END 2025-02-14 17:00 | disposition home or self-care (01) ==
LOC: CHF HDHVI 09:39
PROVIDERS: ATTEND Internal Medicine Cardiovascular Disease
DX: J06.9 Acute upper respiratory infection, unspecified (principal); I11.0 Hypertensive heart disease with heart failure; I50.9 Heart failure, unspecified; F41.9 Anxiety disorder, unspecified; F32.A Depression, unspecified; J43.9 Emphysema, unspecified; E78.5 Hyperlipidemia, unspecified; E03.9 Hypothyroidism, unspecified; E11.9 Type 2 diabetes mellitus without complications; I48.0 Paroxysmal atrial fibrillation; M06.9 Rheumatoid arthritis, unspecified; G43.909 Migraine, unspecified, not intractable, without status migrainosus; Z79.899 Other long term (current) drug therapy; Z87.891 Personal history of nicotine dependence; Z87.440 Personal history of urinary (tract) infections
CPT/HCPCS: 96365; 96366; G0463; J2185